=== PATIENT | female | born 1940 | race Caucasian/White ===

== ENCOUNTER 2018-09-05 15:48 | Emergency (ER) | payer MEDICARE, BC ==
[2018-09-05 15:49] VITALS: BMI 29.2
[2018-09-05 16:36] VITALS: RESP 16; TEMP 98.2; O2SAT 95
[2018-09-05] MEDS ORDERED: TDAP Vaccine 0.5 mL Syr IM ONE (16:43)
--- NOTE | 2018-09-05 16:53 | ED PDOC ---
Arrival/HPI - General Chief Complaint: Trauma Time Seen by Provider: 09/05/18 15:50 Historian: Patient - History of Present Illness Narrative History of Present Illness (Text): 09/05/18 16:45 77 year old female, with no significant past medical history, presents to the emergency department complaining of right hand, right wrist pain s/p trip and fall hitting her head. Patient denies any LOC. Patient denies any fever, chills, chest pain, shortness of breath, nausea, vomiting, diarrhea, urinary symptoms, back pain, neck pain, headache, dizziness, or any other complaints. PMD: Dr. Wise Time/Duration: Prior to Arrival Symptom Onset: Sudden Symptom Course: Unchanged Activities at Onset: Light Context: Home Past Medical History - Provider Review Nursing Documentation Reviewed: Yes - Cardiac Hx Hypertension: Yes - Renal Hx Renal Disorder: No - Endocrine/Metabolic Hx Endocrine Disorders: No - Psychiatric Hx Substance Use: No - Past Surgical History Past Surgical History: No Previous - Anesthesia Hx Anesthesia: No - Suicidal Assessment Feels Threatened In Home Enviroment: No Family/Social History - Physician Review Nursing Documentation Reviewed: Yes Family/Social History: No Known Family HX Smoking Status: Never Smoked Hx Alcohol Use: Yes (Wine) Frequency of alcohol use: Socially Hx Substance Use: No Hx Substance Use Treatment: No Allergies/Home Meds Allergies/Adverse Reactions: Allergies iodine Allergy (Verified 09/05/18 16:39) REDNESS Review of Systems - Physician Review All systems were reviewed & negative as marked: Yes - Review of Systems Constitutional: absent: Fevers, Other (chills) Respiratory: absent: SOB Cardiovascular: absent: Chest Pain Gastrointestinal: absent: Diarrhea, Nausea, Vomiting Genitourinary Female: absent: Dysuria, Frequency, Hematuria Musculoskeletal: Other (right hand and right wrist pain). absent: Back Pain, Neck Pain Neurological: absent: Headache, Dizziness Physical Exam Vital Signs Reviewed: Yes Vital Signs Temp Pulse Resp BP Pulse Ox 09/05/18 16:15 98.2 F 73 16 127/79 95 Temperature: Afebrile Blood Pressure: Normal Pulse: Regular Respiratory Rate: Normal Appearance: Positive for: Well-Appearing, Non-Toxic, Comfortable Pain Distress: None Mental Status: Positive for: Alert and Oriented X 3 - Systems Exam Head: Present: Atraumatic, Normocephalic, Contusion (facial contusion) Pupils: Present: PERRL Extroacular Muscles: Present: EOMI Conjunctiva: Present: Normal Mouth: Present: Moist Mucous Membranes Neck: Present: Normal Range of Motion Respiratory/Chest: Present: Clear to Auscultation, Good Air Exchange. No: Respiratory Distress, Accessory Muscle Use Cardiovascular: Present: Regular Rate and Rhythm, Normal S1, S2. No: Murmurs Abdomen: No: Tenderness, Distention, Peritoneal Signs Back: Present: Normal Inspection Upper Extremity: Present: Other (right hand and wrist pain). No: Cyanosis, Edema Lower Extremity: Present: Normal Inspection. No: Edema Neurological: Present: GCS=15, CN II-XII Intact, Speech Normal Skin: Present: Warm, Dry, Normal Color. No: Rashes Psychiatric: Present: Alert, Oriented x 3, Normal Insight, Normal Concentration Medical Decision Making ED Course and Treatment: 09/05/18 16:54 Impression: 77 year old female presents complaining of right hand and wrist pain s/p fall on the side walk hitting her head. Plan: -- Head CT -- Maxillofacial CT -- Boostrix Vaccine Inj -- Hand Right 3V x-ray -- Wrist Rigth 3V x-ray -- Reassess and disposition Prior Visits: Notes and results from previous visits were reviewed. Progress Notes: 09/11/18 00:[address] quezada. images sent. states pt will need oupt tsurgeyr. splint placed. pt to see dr quezada in am preop labs iniated. neurovasc intact - Lab Interpretations I have reviewed the lab results: Yes - RAD Interpretation Radiology Orders: 09/05/18 16:43 HEAD W/O CONTRAST [CT] Stat MAXILLOFACIAL W/O CONTRAST [CT] Stat HAND RIGHT 3 VIEWS [RAD] Stat WRIST, RIGHT 3 VIEWS [RAD] Stat Firmware Manager: Radiologist - Medication Orders Current Medication Orders: Discontinued Medications Tetanus/Reduced Diphtheria/Acell Pertussis (Boostrix Vaccine Inj) 0.5 ml IM .ONCE ONE Stop: 09/05/18 16:44 - Scribe Statement The provider has reviewed the documentation as recorded by the Angie Agosto Provider Scribe Attestation: All medical record entries made by the Scribe were at my direction and personally dictated by me. I have reviewed the chart and agree that the record accurately reflects my personal performance of the history, physical exam, medical decision making, and the department course for this patient. I have also personally directed, reviewed, and agree with the discharge instructions and disposition. Disposition/Present on Arrival - Present on Arrival Any Indicators Present on Arrival: No History of DVT/PE: No History of Uncontrolled Diabetes: No Urinary Catheter: No History of Decub. Ulcer: No History Surgical Site Infection Following: None - Disposition Have Diagnosis and Disposition been Completed?: Yes Diagnosis: Metacarpal bone fracture, Fall, Contusion Disposition: HOSPITALIZED Disposition Time: 19:00 Condition: STABLE Discharge Instructions (ExitCare): Preventing Falls in the Older Adult, Hand Fracture (DC), Contusion (DC) Additional Instructions: return to er with worsening symptoms or concerns. Prescriptions: Naproxen 500 mg PO BID PRN #14 tablet PRN Reason: Pain, Mild (1-3) Referrals: [facility] [Outside] - Follow up with primary [facility] at [facility] [place] [Outside] - Follow up with primary Esaton Weiner DO [Staff Provider] - Follow up with primary Forms: [employer] (Greenlandic)
--- NOTE | 2018-09-05 17:47 | CT ---
Date of service: 09/05/2018 PROCEDURE: CT HEAD WITHOUT CONTRAST. HISTORY: Posttraumatic headache. COMPARISON: 05/17/2014. TECHNIQUE: Axial computed tomography images were obtained through the head/brain without intravenous contrast. Supplemental Coronal and Sagittal projections created and reviewed. Radiation dose: Total exam DLP = 975.90. mGy-cm. This CT exam was performed using one or more of the following dose reduction techniques: Automated exposure control, adjustment of the mA and/or kV according to patient size, and/or use of iterative reconstruction technique. FINDINGS: HEMORRHAGE: No intracranial hemorrhage. BRAIN: No mass effect or edema. No atrophy or chronic microvascular ischemic changes. VENTRICLES: Unremarkable. No hydrocephalus. CALVARIUM: Unremarkable. PARANASAL SINUSES: Unremarkable as visualized. No significant inflammatory changes. MASTOID AIR CELLS: Unremarkable as visualized. No inflammatory changes. OTHER FINDINGS: Left periorbital and supraorbital soft tissue injury/contusion. There is a preseptal component incompletely visible. IMPRESSION: No acute intracranial abnormalities. No significant findings to account for the clinical presentation. Soft tissue injury/contusion right supraorbital and right frontal regions. No adjacent calvarial or underlying intracranial abnormality detected
--- NOTE | 2018-09-05 17:57 | CT ---
Date of service: 09/05/2018 PROCEDURE: CT MAXILLOFACIAL BONES WITHOUT CONTRAST HISTORY: cabrera COMPARISON: None available. TECHNIQUE: Contiguous axial CT images of the maxillofacial bones were obtained. Coronal and sagittal reformats were generated. Radiation dose: Total exam DLP = 692.61 mGy-cm. This CT exam was performed using one or more of the following dose reduction techniques: Automated exposure control, adjustment of the mA and/or kV according to patient size, and/or use of iterative reconstruction technique. FINDINGS: NASAL BONES: Evidence of old/healed nondisplaced nasal bone fractures. ORBITS: Preseptal soft tissue swelling on the right. No globe or retro conal structural abnormalities. PARANASAL SINUSES/ MASTOIDS: Clear. MAXILLA: Unremarkable. MANDIBLE/ TEMPOROMANDIBULAR JOINTS: Unremarkable. SKULL BASE: Unremarkable. TEMPORAL BONES: Middle ears and mastoid grossly unremarkable. OTHER FINDINGS: Supraorbital soft tissue swelling on the right. Adjacent right frontal sinuses and intracranial contents are unremarkable. IMPRESSION: Joann and supraorbital soft tissue swelling without adjacent osseous, frontal sinus or visible intracranial abnormalities. Additional benign and/or incidental findings described above.
--- NOTE | 2018-09-05 18:33 | RAD ---
PROCEDURE: Right Hand Radiographs. HISTORY: trauma COMPARISON: None. TECHNIQUE: 3 views obtained. FINDINGS: BONES: Known fracture proximal aspect 5th metacarpal. 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 SOFT TISSUES: Normal. OTHER FINDINGS: None. IMPRESSION: Acute fracture base of right 5th metacarpal.
--- NOTE | 2018-09-05 18:33 | RAD ---
Date of service: 09/05/2018 PROCEDURE: Right Wrist Radiographs. HISTORY: trauma COMPARISON: None. TECHNIQUE: 4 views obtained. FINDINGS: BONES: Fracture at the base of the 5th metacarpal. The fractures both angulated and there is an intra-articular component. JOINTS: Normal. No dislocation. SOFT TISSUES: Soft tissue swelling attests to the acuity of the fracture. OTHER FINDINGS: None. IMPRESSION: Acute fracture base of right 5th metacarpal.
[2018-09-05 18:44] LABS: BASO # 0.03 K/mm3 (0.0-2.0); BASO % 0.3 % (0.0-3.0); EOS % 0.2 % (1.5-5.0); LYMPH # 1.5 (1.2-3.4); LYMPH % 12.7 % (22.0-35.0); MEAN CELL VOLUME 93.3 fl (80.0-105.0); MEAN CORPUSCULAR HEMOGLOBIN 31.3 pg (25.0-35.0); MEAN CORPUSCULAR HGB CONC 33.6 g/dl (31.0-37.0); MEAN PLATELET VOLUME 9.5 fl (7.0-11.0); MONO # 0.6 (0.1-0.6); MONO % 4.8 % (1.0-6.0); RBC 4.15 10^6/uL (3.5-6.1); RED CELL DISTRIBUTION WIDTH 12.9 % (11.5-14.5); WHITE BLOOD COUNT 11.5 10^3/uL (4.5-11.0)
[2018-09-05 18:49] LABS: INR 1.08; PARTIAL THROMBOPLASTIN TIME 31.3 Seconds (26.9-38.3)
[2018-09-05 19:03] LABS: ALB/GLOB RATIO 1.5 (1.1-1.8); ALBUMIN 4.1 g/dL (3.0-4.8); ALT/SGPT 13 U/L (7-56); AST/SGOT 31 U/L (14-36); BLOOD UREA NITROGEN 17 mg/dL (7-21); CALCIUM 9.6 mg/dL (8.4-10.5); GFR NON-AFRICAN AMERICAN > 60
[2018-09-05 19:07] VITALS: BP 152/77; PULSE 59
--- NOTE | 2018-09-06 09:52 | CARD ---
APPROVED REPORT Date of service: 09/05/2018 EKG Measurement Heart [id number] <Conclusion> Sinus bradycardia with sinus arrhythmia Otherwise normal ECG
== END 2018-09-05 19:11 | disposition home or self-care (01) ==
LOC: ED 15:48
DX: S62.316A Displaced fracture of base of fifth metacarpal bone, right hand, initial encounter for closed fracture (principal); W01.0XXA Fall on same level from slipping, tripping and stumbling without subsequent striking against object, initial encounter; Y92.480 Sidewalk as the place of occurrence of the external cause; I10 Essential (primary) hypertension; Z23 Encounter for immunization

== ENCOUNTER 2018-09-14 12:42 | Outpatient (CLI) | payer MEDICARE, BC | END 2018-09-14 12:43 | disposition home or self-care (01) | LOC: PAT 12:42 ==

== ENCOUNTER 2018-09-15 06:47 | Day surgery (SDC) | payer MEDICARE, BC ==
[2018-09-14 14:01] VITALS: BMI 26.4
[2018-09-15] MEDS ORDERED: Propofol 10 mg/ml Inj (20 ML) ONE (09:13)
[2018-09-15] MEDS ORDERED: Lidocaine 1% Inj (20ml) ONE (09:15)
[2018-09-15] MEDS ORDERED: CeFAZolin 1 gm in NS 100ml IVPB ONE (09:25)
[2018-09-15] MEDS ORDERED: Oxycodone/Acetaminophen 5/325 mg Tab PO PRN (10:19)
--- NOTE | 2018-09-15 10:22 | PCM.SURG1 ---
Surgeon's Initial Post Op Note - Surgeon's Notes Surgeon: Lacie Geller MD Pediatric Acute Care Unit Nurse: Ava Mai PA-c Type of Anesthesia: General Endo Anesthesia Administered By: Dr. Little Pre-Operative Diagnosis: right 5th metacarpal fx Operative Findings: see full note Post-Operative Diagnosis: same Operation Performed: ORIF base of 5th metacarpal fx Specimen/Specimens Removed: none Estimated Blood Loss: EBL {In ML}: 0 Blood Products Given: N/A Drains Used: No Drains Post-Op Condition: Fair Date of Surgery/Procedure: 09/15/18 Time of Surgery/Procedure: 10:21
[2018-09-15] MEDS ORDERED: HYDROmorphone 0.5 mg/0.5 ml ISec IVP PRN (10:26)
[2018-09-15] MEDS ORDERED: Lactated Ringer's 1,000 ML IV SCH (10:30)
[2018-09-15 11:36] VITALS: RESP 20; TEMP 97.5; O2SAT 98
[2018-09-15 11:52] VITALS: BP 154/57; PULSE 56
--- NOTE | 2018-09-15 12:19 | RAD ---
Date of service: 09/15/2018 PROCEDURE: Right Wrist Radiographs. HISTORY: s/p ORIF 5th metacarpal, PACU COMPARISON: None. TECHNIQUE: 4 views obtained. FINDINGS: BONES: Orthopedic pins are seen in the base of the 5th metacarpal and adjacent hamate. There is anatomic alignment JOINTS: Normal. No dislocation. SOFT TISSUES: Normal. OTHER FINDINGS: None. IMPRESSION: Orthopedic pins are seen in the base of the 5th metacarpal and adjacent hamate. There is anatomic alignment
--- NOTE | 2018-09-18 08:17 | OP ---
PROCEDURE DATE: 09/15/2018 PREOPERATIVE DIAGNOSIS: Right fifth metacarpal base fracture dislocation. POSTOPERATIVE DIAGNOSIS: Right fifth metacarpal base fracture dislocation. PROCEDURE: Closed reduction and pinning of right fifth carpometacarpal fracture. SURGEON: Oni Geller MD. Dr. Geller was assisted by Alexandria Mai, the physician respiratory equipment assistant. TYPE OF ANESTHESIA: General. ESTIMATED BLOOD LOSS: 1 mL. COMPLICATIONS: None. INDICATION FOR PROCEDURE: This is a 78-year-old female who sustained a fall approximately 10 days ago with right hand pain. Clinical and radiographic examination was consistent with a fifth carpometacarpal fracture dislocation. Recommendations were for closed reduction and pinning of the fracture. The risks, benefits and alternatives of the procedure were discussed with the patient including pin tract infection, nonunion, posttraumatic arthritis. The patient understood these risks and informed consent was obtained. DESCRIPTION OF PROCEDURE: After surgical site was signed and verified in the perioperative holding area, the patient was taken to the operating room and placed supine on the operating room table. After administration of general anesthesia, the patient received 1 g of Ancef IV. A tourniquet was placed about the right arm. Care was taken to make sure all bony prominences and nerves were well padded and protected and the right upper extremity was prepped and draped in the usual sterile fashion. Using the C-arm image intensifier, a close reduction was performed. Reduction was verified using the image intensifier. Satisfied, the fracture was then fixed using 4.5 K-wire. First K-wire was inserted transversely from the base of the fifth metacarpal into the fourth metacarpal. Position of the K-wire was confirmed using the image intensifier. Once this was done, a second K-wire was inserted obliquely into the fifth metacarpal into the hamate. Once this was done, x-rays were taken confirming good reduction and good position of the wires. The wires were then cut and capped and dressing was applied and an ulnar gutter splint was placed. The patient was awakened from anesthesia and taken to the recovery room in stable condition. Oni Geller MD
== END 2018-09-15 13:00 | disposition home or self-care (01) ==
LOC: SDS 06:47
PROVIDERS: ATTEND Orthopaedic Surgery
DX: S62.316A Displaced fracture of base of fifth metacarpal bone, right hand, initial encounter for closed fracture (principal); W19.XXXA Unspecified fall, initial encounter; Y92.9 Unspecified place or not applicable; I10 Essential (primary) hypertension
CPT/HCPCS: 26615; 73130; J0131; J0690; J1170; J1885; J2405; J2704; J3010; J7120 ×2